=== PATIENT | male | born 1955 | race Asian ===

== ENCOUNTER 2021-01-15 16:27 | Inpatient (IN) | payer MEDICARE, OTHER ==
[~2021-01-15] VITALS: Ht 167.6 cm; Wt 63.5 kg
[2021-01-15 17:14] LABS: BASOPHILS % (AUTO) 0.1 % (0.0-2.0); EOSINOPHILS % (AUTO) 0 % (1.0-6.0); HEMATOCRIT 47.6 % (41-53); HEMOGLOBIN 15.3 g/dL (13.5-17.5); LYMPHOCYTES # (AUTO) 0.3 K/uL (1.0-4.8); LYMPHOCYTES % (AUTO) 3.5 % (22.0-44.0); MEAN CORPUSCULAR HEMOGLOBIN 28.8 pg (26.0-34.0); MEAN CORPUSCULAR HGB CONC 32.2 G/dL (31.0-37.0); MEAN CORPUSCULAR VOLUME 90 fL (80-100); MONOCYTES # (AUTO) 0.8 K/uL (0.1-1.0); NEUTROPHILS # (AUTO) 6.2 K/uL (1.8-7.7); NEUTROPHILS % (AUTO) 85.4 % (40.0-70.0); PLATELET COUNT (AUTO) 148 K/uL (150-450); RED BLOOD CELL COUNT(AUTO) 5.31 MIL/uL (4.50-5.90); RED CELL DISTRIBUTION WIDTH 13.1 % (11.5-14.5)
[2021-01-15 17:15] LABS: ABG A-A DIFF O2 218.4 mmHg (10-20.0); ABG BASE EXCESS -7.5 mmol/L (-2.0-3.0); ABG CARBOXYHEMOGLOBIN 0.5 % (0.0-1.5); ABG HCO3 19.9 mmol/L (22.0-26.0); ABG METHEMOGLOBIN 0.2 % (0.0-1.5); ABG OXYGEN CONTENT 19.1 mL/dL (15.0-23.0); ABG OXYGEN SATURATION 92.3 % (95.0-98.0); ABG OXYHEMOGLOBIN 91.7 % (94.0-100.0); ABG PCO2 26 mmHg (35-45); ABG PH 7.424 (7.35-7.450); ABG TOTAL HEMOGLOBIN 14.8 G/dL (12.0-18.0); PO2, ARTERIAL BG 70.5 mmHg (79.0-87.0); SOURCE, BLOOD GAS ARTERIAL
[2021-01-15] MEDS ORDERED: DEXAMETHASONE SOD PHOS 4 MG/ML VIAL IVP ONE (17:15)
[2021-01-15] MEDS ORDERED: ACETAMINOPHEN 1000 MG/ISO-OSM 100 ML IV ONE (17:15)
[2021-01-15 17:16] LABS: O2 DEVICE,BLOOD GAS CANNULA (ROOM AIR); SITE, BLOOD GAS LFT RADIAL
[2021-01-15 17:22] LABS: ANION GAP 15 mmol/L (8-16); CALCIUM, TOTAL 8.9 mg/dL (8.8-10.5); CARBON DIOXIDE 23 mmol/L (22-29); CHLORIDE 96 mmol/L (98-107); CREATININE 1.31 mg/dL (0.60-1.30); GLOMERULAR FILTR. RATE CALC 55 mL/min (>60); GLUCOSE,RANDOM 212 mg/dL (70-110); POTASSIUM 4.3 mmol/L (3.5-5.1); SODIUM SERUM 134 mmol/L (136-145); UREA NITROGEN, BLOOD 20 mg/dL (7-18)
[2021-01-15 17:29] LABS: D-DIMER 1.01 mg/L FEU (0.00-0.50); PROTHROMBIN TIME 10.7 SEC (9.4-11.6)
[2021-01-15] MEDS ORDERED: DOXYCYCLINE HYCLATE 100 MG in DEXTROSE 5%-WATER 100 ML IV ONE (17:30)
[2021-01-15] MEDS ORDERED: CefTRIAXone 1 GM/DEXTROSE 50 ML IV ONE (17:30)
[2021-01-15 17:45] LABS: LACTIC ACID 3.6 mmol/L (0.4-2.0)
[2021-01-15 17:46] LABS: B-TYPE NATRIURETIC PEPTIDE 18 pg/mL (0-100)
[2021-01-15 17:49] LABS: ALANINE AMINOTRANSFERASE 29 U/L (12-78); ALBUMIN 2.9 g/dL (3.4-5.0); ALKALINE PHOSPHATASE 82 U/L (46-116); ASPARTATE AMINOTRANSFERASE 50 U/L (15-37); BILIRUBIN,TOTAL 0.7 mg/dL (0.1-1.0); C-REACTIVE PROTEIN QUANT 20.29 mg/dL (0.00-0.30); CREATINE KINASE, TOTAL ONLY 79 U/L (39-308); FERRITIN 701 ng/mL (26-388); LACTATE DEHYDROGENASE 451 U/L (85-227); TOTAL PROTEIN, SERUM 8.6 g/dL (6.4-8.2)
[2021-01-15 18:12] LABS: INFLUENZA TYPE A NEGATIVE FOR TYPE A (NEGATIVE); INFLUENZA TYPE B NEGATIVE FOR TYPE B (NEGATIVE)
[2021-01-15] MEDS ORDERED: SODIUM CHLORIDE 0.9% 1,950 ML IV ONE (18:15)
[2021-01-15] MEDS ORDERED: ALBUTEROL SULFATE HFA 90 MCG/PUFF 8 GM INHALER IH PRN (19:45)
[2021-01-15] MEDS ORDERED: DEXTROSE 50%-WATER 25 GM/50 ML SYRINGE IVP PRN (19:45)
[2021-01-15] MEDS ORDERED: ONDANSETRON HCL 4 MG/2 ML VIAL IVP PRN (19:45)
[2021-01-15] MEDS ORDERED: REMDESIVIR 200 MG in SODIUM CHLORIDE 0.9% 250 ML IV ONE (21:00)
[2021-01-15] MEDS ORDERED: SODIUM CHLORIDE 0.9% 0 ML IV ONE (21:51)
[2021-01-15 22:18] VITALS: BP 138/86
[2021-01-15] MEDS: DOCUSATE SODIUM 100 MG CAPSULE PO SCH (22:49)
[2021-01-15] MEDS: SODIUM CHLORIDE 0.9% 1,000 ML IV SCH (22:49)
[2021-01-15] MEDS: HEPARIN SODIUM,PORCINE 5,000 UNITS/ML VIAL SQ SCH (22:50)
[2021-01-15 23:47] VITALS: BP 126/81
[2021-01-16 04:23] VITALS: BP 147/95
[2021-01-16 06:39] LABS: ALBUMIN 2.5 g/dL (3.4-5.0); BILIRUBIN,TOTAL 0.5 mg/dL (0.1-1.0); CALCIUM, TOTAL 8.9 mg/dL (8.8-10.5); CREATININE 1.21 mg/dL (0.60-1.30); TOTAL PROTEIN, SERUM 7.9 g/dL (6.4-8.2)
[2021-01-16] MEDS: BENZONATATE 100 MG CAPSULE PO PRN ×2 (06:43→15:06)
[2021-01-16 08:10] VITALS: BP 142/96
[2021-01-16] MEDS: MetFORMIN HCL 850 MG TABLET PO SCH ×2 (08:15→17:11)
[2021-01-16] MEDS: DOCUSATE SODIUM 100 MG CAPSULE PO SCH ×2 (08:15→21:00)
[2021-01-16] MEDS: FAMOTIDINE 20 MG TABLET PO SCH (08:15)
[2021-01-16] MEDS: HEPARIN SODIUM,PORCINE 5,000 UNITS/ML VIAL SQ SCH ×3 (08:16→23:40)
[2021-01-16] MEDS: DEXAMETHASONE SOD PHOS 4 MG/ML VIAL IVP SCH (08:16)
[2021-01-16] MEDS: SODIUM CHLORIDE 0.9% 1,000 ML IV SCH ×2 (08:21→16:52)
[2021-01-16] MEDS: ACETAMINOPHEN 325 MG TABLET PO PRN (09:23)
[2021-01-16 10:59] LABS: GLUCOMETER DEV NAME(LOC) 5N.3; GLUCOSE,POINT OF CARE 246 MG/DL (70-110)
[2021-01-16 10:59] LABS: GLUCOMETER DEV NAME(LOC) 5N.3; GLUCOSE,POINT OF CARE 346 MG/DL (70-110)
[2021-01-16] MEDS: GuaiFENesin/CODEINE [SUGAR FREE] 200-20MG/10 ML SYRUP UDCUP PO PRN ×2 (11:50→16:33)
[2021-01-16] MEDS: INSULIN LISPRO 100 UNITS/ML SQ PRN ×3 (11:50→21:22)
[2021-01-16 12:00] VITALS: BP 135/79
[2021-01-16] MEDS: CefTRIAXone 1 GM/DEXTROSE 50 ML IV SCH (15:04)
[2021-01-16] MEDS ORDERED: TOCILIZUMAB IV ONE (16:00)
[2021-01-16] MEDS ORDERED: SODIUM CHLORIDE 0.9% IV ONE (16:00)
[2021-01-16 16:30] VITALS: BP 158/88
[2021-01-16] MEDS: CHOLECALCIFEROL (VIT D3) 2,000 UNITS [50 MCG] TABLET PO SCH (16:50)
[2021-01-16 17:38] LABS: ABG A-A DIFF O2 614.9 mmHg (10-20.0); ABG CARBOXYHEMOGLOBIN 0.3 % (0.0-1.5); ABG METHEMOGLOBIN 0.3 % (0.0-1.5); ABG OXYGEN SATURATION 93.9 % (95.0-98.0); ABG OXYHEMOGLOBIN 93.3 % (94.0-100.0); ABG PCO2 29 mmHg (35-45); ABG PH 7.405 (7.35-7.450); O2 DEVICE,BLOOD GAS CANNULA (ROOM AIR); PO2, ARTERIAL BG 69.2 mmHg (79.0-87.0); SITE, BLOOD GAS LFT BRACHIAL; SOURCE, BLOOD GAS ARTERIAL; TEMPERATURE, FAHRENHEIT, BG 98.6 FAHREN (96.0-98.6)
[2021-01-16 20:00] VITALS: BP 179/118
[2021-01-16] MEDS: REMDESIVIR 100 MG in SODIUM CHLORIDE 0.9% 250 ML IV SCH (21:21)
[2021-01-16] MEDS ORDERED: DILTIAZEM HCL 5 MG/ML 5 ML VIAL IVP ONE (21:45)
[2021-01-16] MEDS ORDERED: MELATONIN 3 MG TABLET PO ONE (22:45)
[2021-01-17] VITALS: BP 135/86
[2021-01-17 00:05] LABS: GLUCOSE,POINT OF CARE 240 MG/DL (70-110)
[2021-01-17] MEDS: SODIUM CHLORIDE 0.9% 1,000 ML IV SCH ×3 (03:56→21:07)
[2021-01-17 04:00] VITALS: BP 145/80
[2021-01-17] MEDS: INSULIN LISPRO 100 UNITS/ML SQ PRN ×3 (05:05→21:08)
[2021-01-17 05:40] LABS: ALANINE AMINOTRANSFERASE 24 U/L (12-78); ALBUMIN 2.3 g/dL (3.4-5.0); ALKALINE PHOSPHATASE 99 U/L (46-116); ANION GAP 12 mmol/L (8-16); ASPARTATE AMINOTRANSFERASE 55 U/L (15-37); BILIRUBIN,TOTAL 0.4 mg/dL (0.1-1.0); CALCIUM, TOTAL 8.9 mg/dL (8.8-10.5); CARBON DIOXIDE 24 mmol/L (22-29); CHLORIDE 108 mmol/L (98-107); CREATININE 0.99 mg/dL (0.60-1.30); GLOMERULAR FILTR. RATE CALC > 60 mL/min (>60); GLUCOSE,RANDOM 213 mg/dL (70-110); POTASSIUM 4.9 mmol/L (3.5-5.1); SODIUM SERUM 144 mmol/L (136-145); TOTAL PROTEIN, SERUM 7.4 g/dL (6.4-8.2); UREA NITROGEN, BLOOD 23 mg/dL (7-18)
[2021-01-17 08:00] VITALS: BP 143/86
[2021-01-17] MEDS: CHOLECALCIFEROL (VIT D3) 2,000 UNITS [50 MCG] TABLET PO SCH (08:06)
[2021-01-17] MEDS: MetFORMIN HCL 850 MG TABLET PO SCH ×2 (08:06→16:32)
[2021-01-17] MEDS: HEPARIN SODIUM,PORCINE 5,000 UNITS/ML VIAL SQ SCH ×2 (08:06→16:32)
[2021-01-17] MEDS: DEXAMETHASONE SOD PHOS 4 MG/ML VIAL IVP SCH (08:06)
[2021-01-17] MEDS: DOCUSATE SODIUM 100 MG CAPSULE PO SCH ×2 (08:07→19:44)
[2021-01-17] MEDS: FAMOTIDINE 20 MG TABLET PO SCH (08:07)
[2021-01-17 12:00] VITALS: BP 115/70
[2021-01-17 12:00] LABS: GLUCOSE,POINT OF CARE 210 MG/DL (70-110)
[2021-01-17] MEDS: CefTRIAXone 1 GM/DEXTROSE 50 ML IV SCH (15:16)
[2021-01-17] MEDS: BENZONATATE 100 MG CAPSULE PO PRN (15:57)
[2021-01-17 16:00] VITALS: BP 127/76
[2021-01-17 17:24] LABS: GLUCOSE,POINT OF CARE 241 MG/DL (70-110)
[2021-01-17 17:25] LABS: GLUCOSE,POINT OF CARE 247 MG/DL (70-110)
[2021-01-17 18:37] LABS: C.DIFF GDH ANTIGEN, Stool Negative (Negative); C.DIFF TOXINS A&B, Stool Negative (Negative)
[2021-01-17] MEDS: REMDESIVIR 100 MG in SODIUM CHLORIDE 0.9% 250 ML IV SCH (19:43)
[2021-01-17 20:12] VITALS: BP 158/95
[2021-01-17 20:22] LABS: GLUCOMETER DEV NAME(LOC) 5N.3; GLUCOSE,POINT OF CARE 289 MG/DL (70-110)
[2021-01-17 20:22] LABS: GLUCOMETER DEV NAME(LOC) 5N.3; GLUCOSE,POINT OF CARE 223 MG/DL (70-110)
[2021-01-17] MEDS: GuaiFENesin/CODEINE [SUGAR FREE] 200-20MG/10 ML SYRUP UDCUP PO PRN (22:27)
[2021-01-17] MEDS: ACETAMINOPHEN 325 MG TABLET PO PRN (22:27)
[2021-01-17 22:29] LABS: GLUCOSE,POINT OF CARE 237 MG/DL (70-110)
[2021-01-18] VITALS: BP 155/97
[2021-01-18] MEDS: HEPARIN SODIUM,PORCINE 5,000 UNITS/ML VIAL SQ SCH ×4 (00:15→23:17)
[2021-01-18 04:00] VITALS: BP 162/96
[2021-01-18] MEDS: SODIUM CHLORIDE 0.9% 1,000 ML IV SCH ×3 (05:21→20:36)
[2021-01-18 05:42] LABS: ALANINE AMINOTRANSFERASE 24 U/L (12-78); ALBUMIN 2.4 g/dL (3.4-5.0); ALKALINE PHOSPHATASE 139 U/L (46-116); ANION GAP 9 mmol/L (8-16); ASPARTATE AMINOTRANSFERASE 50 U/L (15-37); BILIRUBIN,TOTAL 0.4 mg/dL (0.1-1.0); C-REACTIVE PROTEIN QUANT 8.32 mg/dL (0.00-0.30); CALCIUM, TOTAL 8.7 mg/dL (8.8-10.5); CARBON DIOXIDE 24 mmol/L (22-29); CHLORIDE 108 mmol/L (98-107); CREATININE 0.99 mg/dL (0.60-1.30); FERRITIN 888 ng/mL (26-388); GLOMERULAR FILTR. RATE CALC > 60 mL/min (>60); GLUCOSE,RANDOM 229 mg/dL (70-110); LACTATE DEHYDROGENASE 831 U/L (85-227); POTASSIUM 4.5 mmol/L (3.5-5.1); SODIUM SERUM 141 mmol/L (136-145); TOTAL PROTEIN, SERUM 6.9 g/dL (6.4-8.2); UREA NITROGEN, BLOOD 24 mg/dL (7-18)
[2021-01-18] MEDS: INSULIN LISPRO 100 UNITS/ML SQ PRN ×4 (06:44→20:37)
[2021-01-18 06:56] LABS: GLUCOSE,POINT OF CARE 233 MG/DL (70-110)
[2021-01-18] MEDS: GuaiFENesin/CODEINE [SUGAR FREE] 200-20MG/10 ML SYRUP UDCUP PO PRN ×2 (06:56→14:27)
[2021-01-18] MEDS: MetFORMIN HCL 850 MG TABLET PO SCH ×2 (07:51→17:30)
[2021-01-18] MEDS: CHOLECALCIFEROL (VIT D3) 2,000 UNITS [50 MCG] TABLET PO SCH (07:51)
[2021-01-18] MEDS: FAMOTIDINE 20 MG TABLET PO SCH (07:52)
[2021-01-18] MEDS: DEXAMETHASONE SOD PHOS 4 MG/ML VIAL IVP SCH (07:52)
[2021-01-18 08:00] VITALS: BP 156/106
[2021-01-18] MEDS: CloNIDine HCL 0.1 MG TABLET PO PRN ×2 (09:00→18:13)
[2021-01-18] MEDS: DOCUSATE SODIUM 100 MG CAPSULE PO SCH ×2 (09:00→19:47)
[2021-01-18 12:00] VITALS: BP 149/91
[2021-01-18] MEDS: BENZONATATE 100 MG CAPSULE PO PRN (14:27)
[2021-01-18] MEDS: CefTRIAXone 1 GM/DEXTROSE 50 ML IV SCH (14:28)
[2021-01-18 16:00] VITALS: BP 160/93
[2021-01-18 20:00] VITALS: BP 151/98
[2021-01-18 20:09] LABS: GLUCOSE,POINT OF CARE 221 MG/DL (70-110)
[2021-01-18 20:09] LABS: GLUCOSE,POINT OF CARE 235 MG/DL (70-110)
[2021-01-18] MEDS: REMDESIVIR 100 MG in SODIUM CHLORIDE 0.9% 250 ML IV SCH (20:36)
[2021-01-19] VITALS: BP 161/95
[2021-01-19] MEDS: CloNIDine HCL 0.1 MG TABLET PO PRN (03:13)
[2021-01-19 04:00] VITALS: BP 174/117
[2021-01-19 05:16] LABS: ALANINE AMINOTRANSFERASE 26 U/L (12-78); ALBUMIN 2.7 g/dL (3.4-5.0); ALKALINE PHOSPHATASE 179 U/L (46-116); ANION GAP 20 mmol/L (8-16); ASPARTATE AMINOTRANSFERASE 61 U/L (15-37); BILIRUBIN,TOTAL 0.6 mg/dL (0.1-1.0); C-REACTIVE PROTEIN QUANT 4.98 mg/dL (0.00-0.30); CALCIUM, TOTAL 8.5 mg/dL (8.8-10.5); CARBON DIOXIDE 22 mmol/L (22-29); CHLORIDE 103 mmol/L (98-107); CREATININE 0.92 mg/dL (0.60-1.30); FERRITIN 689 ng/mL (26-388); GLOMERULAR FILTR. RATE CALC > 60 mL/min (>60); GLUCOSE,RANDOM 204 mg/dL (70-110); LACTATE DEHYDROGENASE 911 U/L (85-227); POTASSIUM 3.9 mmol/L (3.5-5.1); SODIUM SERUM 145 mmol/L (136-145); TOTAL PROTEIN, SERUM 6.7 g/dL (6.4-8.2); UREA NITROGEN, BLOOD 20 mg/dL (7-18)
[2021-01-19] MEDS ORDERED: HydrALAZINE HCL 20 MG/ML VIAL IVP ONE (05:30)
[2021-01-19 06:40] LABS: ABG A-A DIFF O2 587.8 mmHg (10-20.0); ABG BASE EXCESS -11.1 mmol/L (-2.0-3.0); ABG CARBOXYHEMOGLOBIN 0.6 % (0.0-1.5); ABG HCO3 14.9 mmol/L (22.0-26.0); ABG OXYGEN CONTENT 19.3 mL/dL (15.0-23.0); ABG OXYHEMOGLOBIN 82.6 % (94.0-100.0); ABG PCO2 63 mmHg (35-45); ABG TOTAL HEMOGLOBIN 16.6 G/dL (12.0-18.0); PO2, ARTERIAL BG 63.5 mmHg (79.0-87.0); SOURCE, BLOOD GAS ARTERIAL; TEMPERATURE, FAHRENHEIT, BG 97.9 FAHREN (96.0-98.6)
[2021-01-19 06:41] LABS: ABG OXYGEN SATURATION 83.1 % (95.0-98.0); ABG PH 7.092 (7.35-7.450); O2 DEVICE,BLOOD GAS VENTILATOR (ROOM AIR); SITE, BLOOD GAS LFT RADIAL; VT, ABG 430 ml
[2021-01-19 06:42] LABS: PEEP,BG 5 cm H2O
[2021-01-19 06:53] LABS: ANION GAP 21 mmol/L (8-16); CALCIUM, TOTAL 8.5 mg/dL (8.8-10.5); CARBON DIOXIDE 20 mmol/L (22-29); CHLORIDE 102 mmol/L (98-107); GLOMERULAR FILTR. RATE CALC > 60 mL/min (>60); GLUCOSE,RANDOM 342 mg/dL (70-110); POTASSIUM 3.5 mmol/L (3.5-5.1); SODIUM SERUM 143 mmol/L (136-145); UREA NITROGEN, BLOOD 19 mg/dL (7-18)
[2021-01-19 06:59] LABS: ALANINE AMINOTRANSFERASE 30 U/L (12-78); ALBUMIN 2.8 g/dL (3.4-5.0); ALKALINE PHOSPHATASE 203 U/L (46-116); ASPARTATE AMINOTRANSFERASE 70 U/L (15-37); BILIRUBIN,TOTAL 0.5 mg/dL (0.1-1.0)
[2021-01-19] MEDS: PROPOFOL 1000 MG/ISO-OSM 100 ML IV PRN ×2 (06:59→17:50)
[2021-01-19] MEDS ORDERED: DIGOXIN 250 MCG/ML 2 ML AMP IVP ONE ×2 (07:00→12:30)
[2021-01-19] MEDS ORDERED: PROPOFOL 1000 MG/ISO-OSM 100 ML IV PRN (07:00)
[2021-01-19] MEDS: FentaNYL CIT 1000MCG/D5%-WATER 100 ML IV PRN ×2 (07:36→12:57)
[2021-01-19 08:00] VITALS: BP 161/93
[2021-01-19 09:16] LABS: ABG A-A DIFF O2 330.1 mmHg (10-20.0); ABG CARBOXYHEMOGLOBIN 0.7 % (0.0-1.5); ABG HCO3 13.1 mmol/L (22.0-26.0); ABG METHEMOGLOBIN 0.3 % (0.0-1.5); ABG OXYGEN CONTENT 23.7 mL/dL (15.0-23.0); ABG OXYGEN SATURATION 99.1 % (95.0-98.0); ABG OXYHEMOGLOBIN 98.1 % (94.0-100.0); ABG TOTAL HEMOGLOBIN 16.7 G/dL (12.0-18.0); PO2, ARTERIAL BG 292.2 mmHg (79.0-87.0); SOURCE, BLOOD GAS ARTERIAL
[2021-01-19 09:17] LABS: ABG PCO2 94 mmHg (35-45); ABG PH 6.928 (7.35-7.450); O2 DEVICE,BLOOD GAS VENTILATOR (ROOM AIR); PEEP,BG 10 cm H2O; SITE, BLOOD GAS LFT RADIAL; VT, ABG 430 ml
[2021-01-19] MEDS ORDERED: AMIODARONE HCL 150 MG in DEXTROSE 5%-WATER 97 ML IV ONE (09:30)
[2021-01-19] MEDS ORDERED: INSULIN GLARGINE,HUM.REC.ANLOG 100 UNITS/ML SQ SCH (09:30)
[2021-01-19] MEDS ORDERED: AMIODARONE HCL 360 MG in DEXTROSE 5%-WATER 242.8 ML IV ONE (09:30)
[2021-01-19 09:38] LABS: BASOPHILS % (AUTO) 0.2 % (0.0-2.0); EOSINOPHILS % (AUTO) 0 % (1.0-6.0); HEMATOCRIT 48.5 % (41-53); HEMOGLOBIN 15.6 g/dL (13.5-17.5); LYMPHOCYTES # (AUTO) 0.3 K/uL (1.0-4.8); LYMPHOCYTES % (AUTO) 1.9 % (22.0-44.0); MEAN CORPUSCULAR HEMOGLOBIN 28.7 pg (26.0-34.0); MEAN CORPUSCULAR HGB CONC 32.1 G/dL (31.0-37.0); MEAN CORPUSCULAR VOLUME 89 fL (80-100); MONOCYTES # (AUTO) 1.3 K/uL (0.1-1.0); MONOCYTES % (AUTO) 7.5 % (2.0-9.0); NEUTROPHILS # (AUTO) 16.1 K/uL (1.8-7.7); PLATELET COUNT (AUTO) 243 K/uL (150-450); RED BLOOD CELL COUNT(AUTO) 5.43 MIL/uL (4.50-5.90); RED CELL DISTRIBUTION WIDTH 13.6 % (11.5-14.5)
[2021-01-19 09:39] LABS: NEUTROPHILS % (AUTO) 90.4 % (40.0-70.0)
[2021-01-19] MEDS ORDERED: SODIUM CHLORIDE 0.9% 500 ML IV ONE ×2 (09:50→11:13)
[2021-01-19] MEDS: DOCUSATE SODIUM 100 MG CAPSULE PO SCH ×2 (09:51→21:21)
[2021-01-19] MEDS: CHOLECALCIFEROL (VIT D3) 2,000 UNITS [50 MCG] TABLET PO SCH (09:51)
[2021-01-19] MEDS: FAMOTIDINE 20 MG TABLET PO SCH (09:52)
[2021-01-19] MEDS: DEXAMETHASONE SOD PHOS 4 MG/ML VIAL IVP SCH (09:52)
[2021-01-19] MEDS: MetFORMIN HCL 850 MG TABLET PO SCH ×2 (09:52→16:49)
[2021-01-19] MEDS: HEPARIN SODIUM,PORCINE 5,000 UNITS/ML VIAL SQ SCH ×2 (09:52→16:13)
[2021-01-19] MEDS: SODIUM CHLORIDE 0.9% 1,000 ML IV SCH ×2 (09:53→16:13)
[2021-01-19 12:00] VITALS: BP_SYST 112; BP_SYST 89; BP_DIAS 41; BP_DIAS 68
[2021-01-19 13:28] LABS: ABG A-A DIFF O2 500.3 mmHg (10-20.0); ABG BASE EXCESS -13.3 mmol/L (-2.0-3.0); ABG CARBOXYHEMOGLOBIN 0.9 % (0.0-1.5); ABG HCO3 13.8 mmol/L (22.0-26.0); ABG OXYGEN CONTENT 21.4 mL/dL (15.0-23.0); ABG OXYGEN SATURATION 98.2 % (95.0-98.0); ABG OXYHEMOGLOBIN 97.3 % (94.0-100.0); ABG PCO2 65 mmHg (35-45); ABG PH 7.041 (7.35-7.450); ABG TOTAL HEMOGLOBIN 15.5 G/dL (12.0-18.0); PO2, ARTERIAL BG 149.6 mmHg (79.0-87.0); SITE, BLOOD GAS ARTERIAL LINE; SOURCE, BLOOD GAS ARTERIAL; TEMPERATURE, FAHRENHEIT, BG 97.1 FAHREN (96.0-98.6)
[2021-01-19 13:29] LABS: O2 DEVICE,BLOOD GAS VENTILATOR (ROOM AIR); PEEP,BG 10 cm H2O; VT, ABG 430 ml
[2021-01-19] MEDS ORDERED: CISATRACURIUM BESYLATE 100 MG in DEXTROSE 5%-WATER 240 ML IV PRN (13:30)
[2021-01-19] MEDS ORDERED: CISATRACURIUM BESYLATE 2 MG/ML 10 ML VIAL IVP ONE (13:30)
[2021-01-19 14:35] LABS: GLUCOSE,POINT OF CARE 190 MG/DL (70-110)
[2021-01-19 14:35] LABS: GLUCOSE,POINT OF CARE 182 MG/DL (70-110)
[2021-01-19] MEDS: CefTRIAXone 1 GM/DEXTROSE 50 ML IV SCH (15:11)
[2021-01-19] MEDS ORDERED: AMIODARONE HCL 540 MG in DEXTROSE 5%-WATER 239.2 ML IV ONE (15:30)
[2021-01-19 16:00] VITALS: BP 112/41
[2021-01-19] MEDS: INSULIN LISPRO 100 UNITS/ML SQ PRN ×3 (16:01→22:08)
[2021-01-19] MEDS ORDERED: LIDOCAINE/PF 2% 5 ML VIAL ONE (17:01)
[2021-01-19] MEDS ORDERED: ETOMIDATE 2 MG/ML 10 ML VIAL ONE (17:01)
[2021-01-19] MEDS: SODIUM CHLORIDE 0.9% IV PRN (17:49)
[2021-01-19] MEDS: CISATRACURIUM BESYLATE IV PRN (17:49)
[2021-01-19] MEDS: FentaNYL CIT 1000MCG/0.9% NACL 100 ML IV PRN (17:49)
[2021-01-19 20:07] VITALS: BP 95/37
[2021-01-19] MEDS: RINGERS SOLUTION,LACTATED 1,000 ML IV SCH (21:21)
[2021-01-19] MEDS: REMDESIVIR 100 MG in SODIUM CHLORIDE 0.9% 250 ML IV SCH (21:23)
[2021-01-19] MEDS: NOREPINEPHRINE 4 MG/D5%-WATER 250 ML IV PRN (21:24)
[2021-01-19] MEDS: INSULIN GLARGINE,HUM.REC.ANLOG 100 UNITS/ML SQ SCH (22:06)
[2021-01-20 00:06] VITALS: BP 106/39
[2021-01-20] MEDS: HEPARIN SODIUM,PORCINE 5,000 UNITS/ML VIAL SQ SCH (00:17)
[2021-01-20 00:33] LABS: GLUCOSE,POINT OF CARE 560 MG/DL (70-110)
[2021-01-20 00:33] LABS: GLUCOSE,POINT OF CARE 355 MG/DL (70-110)
[2021-01-20 00:33] LABS: GLUCOSE,POINT OF CARE 540 MG/DL (70-110)
[2021-01-20] MEDS: FentaNYL CIT 1000MCG/0.9% NACL 100 ML IV PRN ×2 (02:42→14:04)
[2021-01-20 04:06] VITALS: BP 102/44
[2021-01-20] MEDS: ACETAMINOPHEN 325 MG TABLET PO PRN ×3 (04:17→21:13)
[2021-01-20 04:48] LABS: HEMATOCRIT 49.3 % (41-53); HEMOGLOBIN 15.4 g/dL (13.5-17.5); MEAN CORPUSCULAR HEMOGLOBIN 28.6 pg (26.0-34.0); MEAN CORPUSCULAR HGB CONC 31.2 G/dL (31.0-37.0); MEAN CORPUSCULAR VOLUME 92 fL (80-100); PLATELET COUNT (AUTO) 208 K/uL (150-450); RED BLOOD CELL COUNT(AUTO) 5.39 MIL/uL (4.50-5.90); RED CELL DISTRIBUTION WIDTH 14.4 % (11.5-14.5)
[2021-01-20 05:34] LABS: ALBUMIN 2.5 g/dL (3.4-5.0); BILIRUBIN,TOTAL 0.2 mg/dL (0.1-1.0); CALCIUM, TOTAL 7.4 mg/dL (8.8-10.5); CREATININE 3.1 mg/dL (0.60-1.30); POTASSIUM 4.7 mmol/L (3.5-5.1); TOTAL PROTEIN, SERUM 6.2 g/dL (6.4-8.2)
[2021-01-20 06:01] LABS: BAND NEUTROPHILS % (MANUAL) 8 % (0-5); LYMPHOCYTES % (MANUAL) 1 % (22-44); MONOCYTES % (MANUAL) 5 % (2-9); SEGMENTED NEUTROPHILS % 86 % (40-70)
[2021-01-20 06:50] LABS: GLUCOSE,POINT OF CARE 105 MG/DL (70-110)
[2021-01-20 08:00] VITALS: BP 119/48
[2021-01-20] MEDS ORDERED: HEPARIN SODIUM,PORCINE 5,000 UNITS/ML VIAL IVP PRN ×2 (08:15)
[2021-01-20] MEDS ORDERED: HEPARIN SODIUM 25000 UNITS/D5W 250 ML IV PRN (08:15)
[2021-01-20 08:57] LABS: EOSINOPHILS % (AUTO) 0 % (1.0-6.0); HEMATOCRIT 44.3 % (41-53); HEMOGLOBIN 13.7 g/dL (13.5-17.5); LYMPHOCYTES # (AUTO) 0.2 K/uL (1.0-4.8); LYMPHOCYTES % (AUTO) 1.3 % (22.0-44.0); MEAN CORPUSCULAR HEMOGLOBIN 28.1 pg (26.0-34.0); MEAN CORPUSCULAR HGB CONC 30.9 G/dL (31.0-37.0); MEAN CORPUSCULAR VOLUME 91 fL (80-100); MONOCYTES # (AUTO) 0.4 K/uL (0.1-1.0); MONOCYTES % (AUTO) 2.9 % (2.0-9.0); NEUTROPHILS # (AUTO) 14.5 K/uL (1.8-7.7); PLATELET COUNT (AUTO) 167 K/uL (150-450); RED BLOOD CELL COUNT(AUTO) 4.88 MIL/uL (4.50-5.90); RED CELL DISTRIBUTION WIDTH 14.5 % (11.5-14.5)
[2021-01-20] MEDS: DOCUSATE SODIUM 100 MG CAPSULE PO SCH ×2 (09:00→21:12)
[2021-01-20 09:06] LABS: NEUTROPHILS % (AUTO) 94.8 % (40.0-70.0)
[2021-01-20] MEDS: FAMOTIDINE 20 MG TABLET PO SCH (09:12)
[2021-01-20] MEDS: CHOLECALCIFEROL (VIT D3) 2,000 UNITS [50 MCG] TABLET PO SCH (09:12)
[2021-01-20] MEDS: DEXAMETHASONE SOD PHOS 4 MG/ML VIAL IVP SCH (09:17)
[2021-01-20] MEDS: AMIODARONE HCL 750 MG in DEXTROSE 5%-WATER 485 ML IV SCH (09:18)
[2021-01-20 09:20] LABS: INR 1.1 (0.9-1.1); PROTHROMBIN TIME 11.6 SEC (9.4-11.6)
[2021-01-20] MEDS: PROPOFOL 1000 MG/ISO-OSM 100 ML IV PRN ×2 (09:21→20:36)
[2021-01-20] MEDS: NOREPINEPHRINE 4 MG/D5%-WATER 250 ML IV PRN (09:21)
[2021-01-20] MEDS: INSULIN GLARGINE,HUM.REC.ANLOG 100 UNITS/ML SQ SCH ×2 (09:23→21:28)
[2021-01-20] MEDS: RINGERS SOLUTION,LACTATED 1,000 ML IV SCH (10:35)
[2021-01-20 11:11] LABS: ABG A-A DIFF O2 326.7 mmHg (10-20.0); ABG BASE EXCESS -10.7 mmol/L (-2.0-3.0); ABG CARBOXYHEMOGLOBIN 0.7 % (0.0-1.5); ABG HCO3 15.9 mmol/L (22.0-26.0); ABG METHEMOGLOBIN 0.2 % (0.0-1.5); ABG OXYGEN CONTENT 21.8 mL/dL (15.0-23.0); ABG OXYGEN SATURATION 97.8 % (95.0-98.0); ABG OXYHEMOGLOBIN 96.9 % (94.0-100.0); ABG PCO2 56 mmHg (35-45); ABG PH 7.137 (7.35-7.450); ABG TOTAL HEMOGLOBIN 15.9 G/dL (12.0-18.0); O2 DEVICE,BLOOD GAS VENTILATOR (ROOM AIR); PO2, ARTERIAL BG 111.2 mmHg (79.0-87.0); SITE, BLOOD GAS ARTERIAL LINE; SOURCE, BLOOD GAS ARTERIAL; TEMPERATURE, FAHRENHEIT, BG 99.8 FAHREN (96.0-98.6); VT, ABG 430 ml
[2021-01-20 11:12] LABS: PEEP,BG 10 cm H2O; SPONTANEOUS VT, BG 423 ml
[2021-01-20] MEDS ORDERED: SODIUM BICARBONATE [ADULT] 8.4% 50 MEQ/50 ML SYRINGE IVP ONE (11:30)
[2021-01-20] MEDS ORDERED: HEPARIN SODIUM,PORCINE 100 UNITS/ML 5 ML VIAL IVP ONE (11:30)
[2021-01-20 11:37] LABS: APPEARANCE,URINE CLOUDY (CLEAR); GLUCOSE, URINE (UA) 100 mg/dL (NEGATIVE); KETONES,URINE TRACE mg/dL (NEGATIVE); LEUKOCYTE ESTERASE ,URINE NEGATIVE (NEGATIVE); NITRATE,URINE NEGATIVE (NEGATIVE); OCCULT BLOOD,URINE LARGE (NEGATIVE); PROTEIN,URINE SEE CONFIRM (NEGATIVE); UROBILINOGEN,URINE 0.2 mg/dL (<=1.0)
[2021-01-20 11:57] LABS: BILIRUBIN,URINE PRELIM. POSITIVE (NEGATIVE)
[2021-01-20 12:00] VITALS: BP 164/54
[2021-01-20] MEDS ORDERED: HEPARIN SODIUM,PORCINE 1,000 UNITS/ML VIAL IVP ONE (12:00)
[2021-01-20 12:18] LABS: SULFOSALICYLIC ACID,URINE 3+ (Negative); WBC,URINE None Seen /HPF (0-5)
[2021-01-20 12:19] LABS: BACTERIA,URINE Few /HPF (None Seen); SQUAMOUS EPITHELIAL CELL,UR Few /LPF (None Seen)
[2021-01-20] MEDS: SODIUM CHLORIDE 0.9% IV PRN (12:19)
[2021-01-20] MEDS: CISATRACURIUM BESYLATE IV PRN (12:19)
[2021-01-20 12:45] LABS: GLUCOSE,POINT OF CARE 131 MG/DL (70-110)
[2021-01-20] MEDS ORDERED: CEFTRIAXONE SODIUM IV SCH (15:00)
[2021-01-20] MEDS ORDERED: SODIUM CHLORIDE 0.9% IV SCH (15:00)
[2021-01-20 15:27] LABS: APPEARANCE,URINE CLOUDY (CLEAR); BILIRUBIN,URINE NEGATIVE (NEGATIVE); GLUCOSE, URINE (UA) 100 mg/dL (NEGATIVE); KETONES,URINE TRACE mg/dL (NEGATIVE); LEUKOCYTE ESTERASE ,URINE TRACE (NEGATIVE); NITRATE,URINE NEGATIVE (NEGATIVE); OCCULT BLOOD,URINE LARGE (NEGATIVE); PROTEIN,URINE SEE CONFIRM (NEGATIVE); UROBILINOGEN,URINE 0.2 mg/dL (<=1.0)
[2021-01-20 15:32] LABS: CREATININE,URINE RANDOM 143.6 mg/dL (30.0-125.0); PROTEIN,URINE RANDOM 259 mg/dL (0-11.9); SODIUM,URINE RANDOM 39 mmol/l (20-110); UREA NITROGEN,URINE RANDOM 192 mg/dL (350-1000)
[2021-01-20 16:00] VITALS: BP 128/48
[2021-01-20 16:18] LABS: BACTERIA,URINE Moderate /HPF (None Seen); RBC,URINE 51-100 /HPF (0-2); SQUAMOUS EPITHELIAL CELL,UR Rare /LPF (None Seen); YEAST,URINE Rare /HPF (None Seen)
[2021-01-20 16:19] LABS: SULFOSALICYLIC ACID,URINE 1+ (Negative)
[2021-01-20 17:58] LABS: INR 1.2 (0.9-1.1); PROTHROMBIN TIME 12.4 SEC (9.4-11.6)
[2021-01-20] MEDS: INSULIN LISPRO 100 UNITS/ML SQ PRN (19:06)
[2021-01-20] MEDS ORDERED: SODIUM CHLORIDE 0.9% 250 ML IV ONE (19:18)
[2021-01-20 20:00] VITALS: BP 130/52
[2021-01-20 21:15] LABS: GLUCOSE,POINT OF CARE 209 MG/DL (70-110)
[2021-01-21] VITALS: BP 121/54
[2021-01-21 01:26] LABS: GLUCOSE,POINT OF CARE 217 MG/DL (70-110)
[2021-01-21] MEDS: INSULIN LISPRO 100 UNITS/ML SQ PRN ×4 (01:53→18:22)
[2021-01-21] MEDS: ACETAMINOPHEN 325 MG TABLET PO PRN (02:13)
[2021-01-21 04:00] VITALS: BP 97/41
[2021-01-21 04:51] LABS: GLUCOSE,POINT OF CARE 217 MG/DL (70-110)
[2021-01-21 05:10] LABS: BASOPHILS % (AUTO) 0.1 % (0.0-2.0); EOSINOPHILS % (AUTO) 0 % (1.0-6.0); HEMATOCRIT 48.7 % (41-53); HEMOGLOBIN 15.2 g/dL (13.5-17.5); LYMPHOCYTES # (AUTO) 0.2 K/uL (1.0-4.8); LYMPHOCYTES % (AUTO) 1.5 % (22.0-44.0); MEAN CORPUSCULAR HEMOGLOBIN 28.4 pg (26.0-34.0); MEAN CORPUSCULAR HGB CONC 31.3 G/dL (31.0-37.0); MEAN CORPUSCULAR VOLUME 91 fL (80-100); MONOCYTES # (AUTO) 0.6 K/uL (0.1-1.0); MONOCYTES % (AUTO) 4.5 % (2.0-9.0); NEUTROPHILS # (AUTO) 13.2 K/uL (1.8-7.7); RED BLOOD CELL COUNT(AUTO) 5.36 MIL/uL (4.50-5.90); RED CELL DISTRIBUTION WIDTH 14.4 % (11.5-14.5)
[2021-01-21 05:43] LABS: NEUTROPHILS % (AUTO) 93.9 % (40.0-70.0)
[2021-01-21 08:00] VITALS: BP 101/51
[2021-01-21] MEDS ORDERED: SODIUM CHLORIDE 0.9% 2,000 ML ONE (08:19)
[2021-01-21 08:33] LABS: CALCIUM, TOTAL 6.9 mg/dL (8.8-10.5); CREATININE 5.04 mg/dL (0.60-1.30); POTASSIUM 4.8 mmol/L (3.5-5.1)
[2021-01-21 08:40] LABS: PLATELET COUNT (AUTO) 91 K/uL (150-450)
[2021-01-21] MEDS: DOCUSATE SODIUM 100 MG CAPSULE PO SCH ×2 (08:45→20:12)
[2021-01-21] MEDS: DEXAMETHASONE SOD PHOS 4 MG/ML VIAL IVP SCH (08:45)
[2021-01-21] MEDS: FAMOTIDINE 20 MG TABLET PO SCH (08:46)
[2021-01-21] MEDS: PROPOFOL 1000 MG/ISO-OSM 100 ML IV PRN ×3 (08:46→23:26)
[2021-01-21] MEDS: CHOLECALCIFEROL (VIT D3) 2,000 UNITS [50 MCG] TABLET PO SCH (08:46)
[2021-01-21] MEDS: AMIODARONE HCL 750 MG in DEXTROSE 5%-WATER 485 ML IV SCH (09:07)
[2021-01-21] MEDS: INSULIN GLARGINE,HUM.REC.ANLOG 100 UNITS/ML SQ SCH ×2 (09:08→20:14)
[2021-01-21] MEDS ORDERED: *CLINICAL-RX DOSING [ENTER DRUG IN COMMENTS] CLINICAL ONE (10:00)
[2021-01-21] MEDS ORDERED: *CLINICAL-CEFEPIME DOSING CLINICAL ONE (10:00)
[2021-01-21 10:34] LABS: ABG A-A DIFF O2 430.2 mmHg (10-20.0); ABG BASE EXCESS -5.8 mmol/L (-2.0-3.0); ABG CARBOXYHEMOGLOBIN 0.4 % (0.0-1.5); ABG HCO3 18.9 mmol/L (22.0-26.0); ABG METHEMOGLOBIN 0.4 % (0.0-1.5); ABG OXYGEN SATURATION 98.5 % (95.0-98.0); ABG OXYHEMOGLOBIN 97.7 % (94.0-100.0); ABG PCO2 61 mmHg (35-45); ABG TOTAL HEMOGLOBIN 17.3 G/dL (12.0-18.0); PO2, ARTERIAL BG 148.6 mmHg (79.0-87.0); SOURCE, BLOOD GAS ARTERIAL; TEMPERATURE, FAHRENHEIT, BG 99.2 FAHREN (96.0-98.6)
[2021-01-21 10:35] LABS: ABG PH 7.186 (7.35-7.450); O2 DEVICE,BLOOD GAS VENTILATOR (ROOM AIR); PEEP,BG 10 cm H2O; SITE, BLOOD GAS ALINE; VT, ABG 430 ml
[2021-01-21] MEDS ORDERED: SODIUM BICARBONATE [ADULT] 8.4% 50 MEQ/50 ML SYRINGE IVP ONE (10:45)
[2021-01-21] MEDS: FentaNYL CIT 1000MCG/0.9% NACL 100 ML IV PRN ×2 (11:25→21:17)
[2021-01-21 12:00] VITALS: BP 106/51
[2021-01-21] MEDS ORDERED: HEPARIN SODIUM,PORCINE 1,000 UNITS/ML VIAL IVP ONE (12:00)
[2021-01-21] MEDS: CEFEPIME HCL 1 GM in DEXTROSE 5%-WATER 50 ML IV SCH (13:34)
[2021-01-21 14:25] LABS: GLUCOSE,POINT OF CARE 146 MG/DL (70-110)
[2021-01-21 14:25] LABS: GLUCOSE,POINT OF CARE 154 MG/DL (70-110)
[2021-01-21 16:00] VITALS: BP 109/54
[2021-01-21] MEDS ORDERED: DAPTOMYCIN 350 MG in SODIUM CHLORIDE 0.9% 50 ML IV SCH (16:00)
[2021-01-21 19:56] LABS: GLUCOSE,POINT OF CARE 218 MG/DL (70-110)
[2021-01-21 20:00] VITALS: BP 140/61
[2021-01-22] VITALS: BP 162/68
[2021-01-22] MEDS: INSULIN LISPRO 100 UNITS/ML SQ PRN ×4 (00:24→17:35)
[2021-01-22] MEDS: SODIUM CHLORIDE 0.9% IV PRN ×2 (01:32→22:50)
[2021-01-22] MEDS: CISATRACURIUM BESYLATE IV PRN ×2 (01:32→22:50)
[2021-01-22 02:15] LABS: GLUCOSE,POINT OF CARE 216 MG/DL (70-110)
[2021-01-22] MEDS ORDERED: SODIUM CHLORIDE 0.9% 500 ML IV ONE ×2 (03:46→22:16)
[2021-01-22 04:00] VITALS: BP 154/61
[2021-01-22] MEDS: PROPOFOL 1000 MG/ISO-OSM 100 ML IV PRN ×4 (04:16→20:36)
[2021-01-22 05:23] LABS: BASOPHILS % (AUTO) 0.3 % (0.0-2.0); EOSINOPHILS % (AUTO) 0 % (1.0-6.0); HEMATOCRIT 48.2 % (41-53); HEMOGLOBIN 15.4 g/dL (13.5-17.5); LYMPHOCYTES # (AUTO) 0.2 K/uL (1.0-4.8); LYMPHOCYTES % (AUTO) 1.4 % (22.0-44.0); MEAN CORPUSCULAR HEMOGLOBIN 28.7 pg (26.0-34.0); MEAN CORPUSCULAR VOLUME 90 fL (80-100); MONOCYTES # (AUTO) 1.2 K/uL (0.1-1.0); MONOCYTES % (AUTO) 6.7 % (2.0-9.0); NEUTROPHILS # (AUTO) 15.9 K/uL (1.8-7.7); PLATELET COUNT (AUTO) 101 K/uL (150-450); RED BLOOD CELL COUNT(AUTO) 5.38 MIL/uL (4.50-5.90); RED CELL DISTRIBUTION WIDTH 14.5 % (11.5-14.5)
[2021-01-22] MEDS: FentaNYL CIT 1000MCG/0.9% NACL 100 ML IV PRN ×3 (05:45→22:50)
[2021-01-22 06:07] LABS: CALCIUM, TOTAL 7.6 mg/dL (8.8-10.5); CREATININE 4.28 mg/dL (0.60-1.30); MAGNESIUM 2.4 mg/dL (1.80-2.40); PHOSPHORUS 7.5 mg/dL (2.5-4.9); POTASSIUM 4.7 mmol/L (3.5-5.1)
[2021-01-22 06:13] LABS: NEUTROPHILS % (AUTO) 91.6 % (40.0-70.0)
[2021-01-22 06:29] LABS: GLUCOSE,POINT OF CARE 160 MG/DL (70-110)
[2021-01-22 08:00] VITALS: BP 130/54
[2021-01-22] MEDS: DEXAMETHASONE SOD PHOS 4 MG/ML VIAL IVP SCH (08:38)
[2021-01-22] MEDS: CHOLECALCIFEROL (VIT D3) 2,000 UNITS [50 MCG] TABLET PO SCH (08:38)
[2021-01-22] MEDS: VITAMIN B COMP/VIT C/FOLIC ACID CAPSULE PO SCH (08:38)
[2021-01-22] MEDS: FAMOTIDINE 20 MG TABLET PO SCH (08:39)
[2021-01-22] MEDS: DOCUSATE SODIUM 100 MG CAPSULE PO SCH ×2 (08:39→20:36)
[2021-01-22] MEDS: INSULIN GLARGINE,HUM.REC.ANLOG 100 UNITS/ML SQ SCH ×2 (08:40→20:35)
[2021-01-22] MEDS: AMINO ACIDS/PROTEIN HYDROLYS 30 ML TUBE NG SCH (08:41)
[2021-01-22] MEDS: AMIODARONE HCL 750 MG in DEXTROSE 5%-WATER 485 ML IV SCH (10:27)
[2021-01-22] MEDS: CEFEPIME HCL 1 GM in DEXTROSE 5%-WATER 50 ML IV SCH (10:52)
[2021-01-22 11:27] LABS: ABG A-A DIFF O2 280.6 mmHg (10-20.0); ABG BASE EXCESS -6.5 mmol/L (-2.0-3.0); ABG CARBOXYHEMOGLOBIN 1.1 % (0.0-1.5); ABG HCO3 18.3 mmol/L (22.0-26.0); ABG METHEMOGLOBIN 0.2 % (0.0-1.5); ABG OXYGEN SATURATION 94.1 % (95.0-98.0); ABG OXYHEMOGLOBIN 92.9 % (94.0-100.0); ABG PCO2 65 mmHg (35-45); ABG TOTAL HEMOGLOBIN 15.3 G/dL (12.0-18.0); PO2, ARTERIAL BG 75.8 mmHg (79.0-87.0); SOURCE, BLOOD GAS ARTERIAL; TEMPERATURE, FAHRENHEIT, BG 98.9 FAHREN (96.0-98.6)
[2021-01-22 12:00] VITALS: BP 145/58
[2021-01-22 12:51] LABS: ABG PH 7.155 (7.35-7.450); SITE, BLOOD GAS ALINE
[2021-01-22 12:52] LABS: O2 DEVICE,BLOOD GAS VENTILATOR (ROOM AIR); VT, ABG 430 ml
[2021-01-22] MEDS ORDERED: SODIUM CHLORIDE 0.9% 2,000 ML ONE ×2 (14:25→16:49)
[2021-01-22 16:00] VITALS: BP 96/41
[2021-01-22] MEDS: NOREPINEPHRINE 4 MG/D5%-WATER 250 ML IV PRN (16:12)
[2021-01-22 17:34] LABS: GLUCOSE,POINT OF CARE 243 MG/DL (70-110)
[2021-01-22 20:00] VITALS: BP 121/51
[2021-01-22] MEDS ORDERED: SODIUM CHLORIDE 0.9% 250 ML IV ONE (22:16)
[2021-01-23] VITALS: BP 122/46
[2021-01-23] MEDS: PROPOFOL 1000 MG/ISO-OSM 100 ML IV PRN ×4 (00:19→16:28)
[2021-01-23] MEDS: INSULIN LISPRO 100 UNITS/ML SQ PRN ×4 (00:20→11:47)
[2021-01-23 02:47] LABS: GLUCOSE,POINT OF CARE 212 MG/DL (70-110)
[2021-01-23 02:47] LABS: GLUCOSE,POINT OF CARE 178 MG/DL (70-110)
[2021-01-23 02:47] LABS: GLUCOSE,POINT OF CARE 191 MG/DL (70-110)
[2021-01-23 04:00] VITALS: BP 121/48
[2021-01-23 06:14] LABS: ALBUMIN 2.2 g/dL (3.4-5.0); BILIRUBIN,TOTAL 0.8 mg/dL (0.1-1.0); CALCIUM, TOTAL 7.4 mg/dL (8.8-10.5); CREATININE 5.12 mg/dL (0.60-1.30); POTASSIUM 5.2 mmol/L (3.5-5.1); TOTAL PROTEIN, SERUM 5.3 g/dL (6.4-8.2)
[2021-01-23 06:29] LABS: GLUCOSE,POINT OF CARE 221 MG/DL (70-110)
[2021-01-23 08:00] VITALS: BP 91/35
[2021-01-23] MEDS: AMINO ACIDS/PROTEIN HYDROLYS 30 ML TUBE NG SCH (08:00)
[2021-01-23] MEDS: DEXAMETHASONE SOD PHOS 4 MG/ML VIAL IVP SCH (09:15)
[2021-01-23] MEDS: DOCUSATE SODIUM 100 MG CAPSULE PO SCH ×2 (09:15→21:17)
[2021-01-23] MEDS: FAMOTIDINE 20 MG TABLET PO SCH (09:15)
[2021-01-23] MEDS: VITAMIN B COMP/VIT C/FOLIC ACID CAPSULE PO SCH (09:15)
[2021-01-23] MEDS: INSULIN GLARGINE,HUM.REC.ANLOG 100 UNITS/ML SQ SCH ×2 (09:18→21:00)
[2021-01-23] MEDS: FentaNYL CIT 1000MCG/0.9% NACL 100 ML IV PRN (09:20)
[2021-01-23] MEDS: CHOLECALCIFEROL (VIT D3) 2,000 UNITS [50 MCG] TABLET PO SCH (09:22)
[2021-01-23] MEDS: AMIODARONE HCL 750 MG in DEXTROSE 5%-WATER 485 ML IV SCH (10:18)
[2021-01-23] MEDS: CEFEPIME HCL 1 GM in DEXTROSE 5%-WATER 50 ML IV SCH (10:39)
[2021-01-23 11:27] LABS: ABG A-A DIFF O2 185.4 mmHg (10-20.0); ABG BASE EXCESS -9.2 mmol/L (-2.0-3.0); ABG CARBOXYHEMOGLOBIN 0.9 % (0.0-1.5); ABG HCO3 16.4 mmol/L (22.0-26.0); ABG METHEMOGLOBIN 0.5 % (0.0-1.5); ABG OXYGEN CONTENT 18.8 mL/dL (15.0-23.0); ABG OXYGEN SATURATION 95.8 % (95.0-98.0); ABG OXYHEMOGLOBIN 94.5 % (94.0-100.0); ABG PH 7.087 (7.35-7.450); ABG TOTAL HEMOGLOBIN 14.1 G/dL (12.0-18.0); PO2, ARTERIAL BG 91.7 mmHg (79.0-87.0); SOURCE, BLOOD GAS ARTERIAL; TEMPERATURE, FAHRENHEIT, BG 99.2 FAHREN (96.0-98.6)
[2021-01-23 11:28] LABS: ABG PCO2 70 mmHg (35-45); O2 DEVICE,BLOOD GAS VENTILATOR (ROOM AIR); PEEP,BG 10 cm H2O; SITE, BLOOD GAS ARTERIAL LINE; VT, ABG 430 ml
[2021-01-23 11:55] LABS: GLUCOSE,POINT OF CARE 211 MG/DL (70-110)
[2021-01-23 12:00] VITALS: BP 96/33
[2021-01-23] MEDS ORDERED: SODIUM BICARBONATE [ADULT] 8.4% 50 MEQ/50 ML SYRINGE IVP ONE (12:00)
[2021-01-23 13:34] LABS: GLUCOSE,POINT OF CARE 195 MG/DL (70-110)
[2021-01-23] MEDS ORDERED: CASPOFUNGIN ACETATE 70 MG in SODIUM CHLORIDE 0.9% 250 ML IV ONE (14:00)
[2021-01-23 14:05] LABS: ABG A-A DIFF O2 220.8 mmHg (10-20.0); ABG CARBOXYHEMOGLOBIN 1.1 % (0.0-1.5); ABG HCO3 20.5 mmol/L (22.0-26.0); ABG METHEMOGLOBIN 0.4 % (0.0-1.5); ABG OXYGEN CONTENT 18.7 mL/dL (15.0-23.0); ABG OXYHEMOGLOBIN 92.6 % (94.0-100.0); ABG PCO2 58 mmHg (35-45); ABG PH 7.226 (7.35-7.450); ABG TOTAL HEMOGLOBIN 14.4 G/dL (12.0-18.0); PO2, ARTERIAL BG 69.6 mmHg (79.0-87.0); SOURCE, BLOOD GAS ARTERIAL; TEMPERATURE, FAHRENHEIT, BG 99.1 FAHREN (96.0-98.6)
[2021-01-23 14:06] LABS: O2 DEVICE,BLOOD GAS VENTILATOR (ROOM AIR); PEEP,BG 10 cm H2O; SITE, BLOOD GAS ARTERIAL LINE; VT, ABG 450 ml
[2021-01-23] MEDS ORDERED: HEPARIN SODIUM,PORCINE 1,000 UNITS/ML VIAL IVP ONE (14:54)
[2021-01-23 16:00] VITALS: BP 122/56
[2021-01-23] MEDS ORDERED: DAPTOMYCIN 375 MG in SODIUM CHLORIDE 0.9% 50 ML IV SCH (16:00)
[2021-01-23 17:37] LABS: GLUCOSE,POINT OF CARE 105 MG/DL (70-110)
[2021-01-23 20:00] VITALS: BP 110/51
[2021-01-23] MEDS ORDERED: SODIUM CHLORIDE 0.9% 250 ML IV ONE (21:01)
[2021-01-23] MEDS ORDERED: SODIUM CHLORIDE 0.9% 500 ML IV ONE (21:01)
[2021-01-23] MEDS: AMIODARONE HCL 200 MG TABLET PO SCH (21:17)
[2021-01-23 21:28] LABS: GLUCOSE,POINT OF CARE 93 MG/DL (70-110)
[2021-01-24] VITALS: BP 131/57
[2021-01-24] MEDS: FentaNYL CIT 1000MCG/0.9% NACL 100 ML IV PRN ×3 (01:08→20:51)
[2021-01-24] MEDS: PROPOFOL 1000 MG/ISO-OSM 100 ML IV PRN ×4 (01:10→20:49)
[2021-01-24 04:00] VITALS: BP 136/57
[2021-01-24 05:02] LABS: BASOPHILS % (AUTO) 1.5 % (0.0-2.0); EOSINOPHILS % (AUTO) 0 % (1.0-6.0); HEMATOCRIT 39.6 % (41-53); HEMOGLOBIN 12.6 g/dL (13.5-17.5); LYMPHOCYTES # (AUTO) 0.2 K/uL (1.0-4.8); MEAN CORPUSCULAR HEMOGLOBIN 28.2 pg (26.0-34.0); MEAN CORPUSCULAR HGB CONC 31.9 G/dL (31.0-37.0); MEAN CORPUSCULAR VOLUME 89 fL (80-100); MONOCYTES # (AUTO) 1.2 K/uL (0.1-1.0); NEUTROPHILS # (AUTO) 17.7 K/uL (1.8-7.7); RED BLOOD CELL COUNT(AUTO) 4.47 MIL/uL (4.50-5.90); RED CELL DISTRIBUTION WIDTH 13.7 % (11.5-14.5)
[2021-01-24 05:02] LABS: GLUCOSE,POINT OF CARE 116 MG/DL (70-110)
[2021-01-24 05:05] LABS: NEUTROPHILS % (AUTO) 91.5 % (40.0-70.0)
[2021-01-24] MEDS: INSULIN LISPRO 100 UNITS/ML SQ PRN ×3 (06:12→17:54)
[2021-01-24 06:52] LABS: PLATELET COUNT (AUTO) 92 K/uL (150-450)
[2021-01-24 08:00] VITALS: BP 150/60
[2021-01-24] MEDS: AMINO ACIDS/PROTEIN HYDROLYS 30 ML TUBE NG SCH (08:14)
[2021-01-24] MEDS: VITAMIN B COMP/VIT C/FOLIC ACID CAPSULE PO SCH (08:15)
[2021-01-24] MEDS: DEXAMETHASONE SOD PHOS 4 MG/ML VIAL IVP SCH (08:15)
[2021-01-24] MEDS: DOCUSATE SODIUM 100 MG CAPSULE PO SCH ×2 (08:15→20:47)
[2021-01-24] MEDS: CHOLECALCIFEROL (VIT D3) 2,000 UNITS [50 MCG] TABLET PO SCH (08:15)
[2021-01-24] MEDS: FAMOTIDINE 20 MG TABLET PO SCH (08:15)
[2021-01-24] MEDS: AMIODARONE HCL 200 MG TABLET PO SCH ×2 (08:16→20:47)
[2021-01-24] MEDS: INSULIN GLARGINE,HUM.REC.ANLOG 100 UNITS/ML SQ SCH ×2 (08:17→20:51)
[2021-01-24 10:05] LABS: ABG A-A DIFF O2 233.8 mmHg (10-20.0); ABG BASE EXCESS -6.8 mmol/L (-2.0-3.0); ABG CARBOXYHEMOGLOBIN 1.3 % (0.0-1.5); ABG HCO3 18.8 mmol/L (22.0-26.0); ABG METHEMOGLOBIN 0.1 % (0.0-1.5); ABG OXYGEN CONTENT 17.8 mL/dL (15.0-23.0); ABG OXYGEN SATURATION 93.5 % (95.0-98.0); ABG OXYHEMOGLOBIN 92.2 % (94.0-100.0); ABG PCO2 48 mmHg (35-45); ABG PH 7.245 (7.35-7.450); ABG TOTAL HEMOGLOBIN 13.7 G/dL (12.0-18.0); PO2, ARTERIAL BG 69.2 mmHg (79.0-87.0); SOURCE, BLOOD GAS ARTERIAL; TEMPERATURE, FAHRENHEIT, BG 97.3 FAHREN (96.0-98.6)
[2021-01-24 10:06] LABS: O2 DEVICE,BLOOD GAS VENTILATOR (ROOM AIR); PEEP,BG 10 cm H2O; SITE, BLOOD GAS ARTERIAL LINE; VT, ABG 450 ml
[2021-01-24] MEDS ORDERED: SODIUM BICARBONATE [ADULT] 8.4% 50 MEQ/50 ML SYRINGE IVP ONE (10:15)
[2021-01-24] MEDS ORDERED: DEXMEDETOMIDINE HCL 400 MCG in SODIUM CHLORIDE 0.9% 96 ML IV PRN (10:15)
[2021-01-24 10:20] LABS: CALCIUM, TOTAL 7.6 mg/dL (8.8-10.5); CREATININE 6.89 mg/dL (0.60-1.30); POTASSIUM 4.9 mmol/L (3.5-5.1)
[2021-01-24] MEDS: CEFEPIME HCL 1 GM in DEXTROSE 5%-WATER 50 ML IV SCH ×2 (11:17→12:08)
[2021-01-24 11:59] LABS: GLUCOSE,POINT OF CARE 130 MG/DL (70-110)
[2021-01-24 12:00] VITALS: BP 157/58
[2021-01-24 13:08] LABS: GLUCOSE,POINT OF CARE 194 MG/DL (70-110)
[2021-01-24] MEDS: NOREPINEPHRINE 4 MG/D5%-WATER 250 ML IV PRN ×2 (13:40→22:44)
[2021-01-24] MEDS ORDERED: CASPOFUNGIN ACETATE 50 MG in SODIUM CHLORIDE 0.9% 250 ML IV SCH (14:00)
[2021-01-24 16:00] VITALS: BP 102/48
[2021-01-24] MEDS ORDERED: HEPARIN SODIUM,PORCINE 1,000 UNITS/ML VIAL IVP ONE (17:20)
[2021-01-24] MEDS ORDERED: MANNITOL 25%-12.5 GM/50 ML VIAL IVP ONE (17:20)
[2021-01-24 19:51] LABS: GLUCOSE,POINT OF CARE 177 MG/DL (70-110)
[2021-01-24 20:00] VITALS: BP 159/59
[2021-01-24] MEDS ORDERED: SODIUM CHLORIDE 0.9% 250 ML IV ONE (20:39)
[2021-01-24] MEDS ORDERED: SODIUM CHLORIDE 0.9% 500 ML IV ONE (20:39)
[2021-01-24 22:39] LABS: GLUCOSE,POINT OF CARE 177 MG/DL (70-110)
[2021-01-24 23:02] LABS: ABG A-A DIFF O2 377.3 mmHg (10-20.0); ABG BASE EXCESS -6.3 mmol/L (-2.0-3.0); ABG CARBOXYHEMOGLOBIN 1.2 % (0.0-1.5); ABG METHEMOGLOBIN 0.3 % (0.0-1.5); ABG OXYGEN CONTENT 16.7 mL/dL (15.0-23.0); ABG OXYGEN SATURATION 92.4 % (95.0-98.0); ABG PCO2 52 mmHg (35-45); PO2, ARTERIAL BG 66.2 mmHg (79.0-87.0); SOURCE, BLOOD GAS ARTERIAL; TEMPERATURE, FAHRENHEIT, BG 98.5 FAHREN (96.0-98.6)
[2021-01-24 23:03] LABS: SITE, BLOOD GAS ARTERIAL LINE
[2021-01-24 23:04] LABS: O2 DEVICE,BLOOD GAS VENTILATOR (ROOM AIR); PEEP,BG 10 cm H2O; VT, ABG 450 ml
[2021-01-25] VITALS: BP 149/51
[2021-01-25] MEDS ORDERED: SODIUM BICARBONATE [ADULT] 8.4% 50 MEQ/50 ML SYRINGE IVP ONE (00:15)
[2021-01-25] MEDS: INSULIN LISPRO 100 UNITS/ML SQ PRN (00:50)
[2021-01-25] MEDS: MIDAZOLAM HCL 100 MG in SODIUM CHLORIDE 0.9% 180 ML IV PRN ×3 (00:52→21:55)
[2021-01-25] MEDS: FentaNYL CIT 1000MCG/0.9% NACL 100 ML IV PRN ×4 (02:08→22:56)
[2021-01-25] MEDS: PROPOFOL 1000 MG/ISO-OSM 100 ML IV PRN ×3 (02:08→15:07)
[2021-01-25] MEDS: CISATRACURIUM BESYLATE IV PRN (02:56)
[2021-01-25] MEDS: SODIUM CHLORIDE 0.9% IV PRN (02:56)
[2021-01-25 03:58] LABS: GLUCOSE,POINT OF CARE 181 MG/DL (70-110)
[2021-01-25 04:00] VITALS: BP 144/57
[2021-01-25 06:08] LABS: D-DIMER 11.43 mg/L FEU (0.00-0.50)
[2021-01-25 06:09] LABS: ALBUMIN 2.1 g/dL (3.4-5.0); BILIRUBIN,TOTAL 0.8 mg/dL (0.1-1.0); C-REACTIVE PROTEIN QUANT 4.69 mg/dL (0.00-0.30); CALCIUM, TOTAL 7.6 mg/dL (8.8-10.5); CREATININE 6.76 mg/dL (0.60-1.30); POTASSIUM 4.3 mmol/L (3.5-5.1); TOTAL PROTEIN, SERUM 5.3 g/dL (6.4-8.2)
[2021-01-25 08:00] VITALS: BP 112/40
[2021-01-25] MEDS: NOREPINEPHRINE 4 MG/D5%-WATER 250 ML IV PRN (08:40)
[2021-01-25] MEDS: ACETAMINOPHEN 325 MG TABLET PO PRN (08:40)
[2021-01-25] MEDS: CHOLECALCIFEROL (VIT D3) 2,000 UNITS [50 MCG] TABLET PO SCH (08:41)
[2021-01-25] MEDS: DEXAMETHASONE SOD PHOS 4 MG/ML VIAL IVP SCH (08:41)
[2021-01-25] MEDS: FAMOTIDINE 20 MG TABLET PO SCH (08:42)
[2021-01-25] MEDS: MICONAZOLE NITRATE 2% 142 GM CREAM [BAZA] TP SCH (08:42)
[2021-01-25] MEDS: AMIODARONE HCL 200 MG TABLET PO SCH ×2 (08:42→20:46)
[2021-01-25] MEDS: VITAMIN B COMP/VIT C/FOLIC ACID CAPSULE PO SCH (08:42)
[2021-01-25] MEDS: AMINO ACIDS/PROTEIN HYDROLYS 30 ML TUBE NG SCH (08:42)
[2021-01-25] MEDS: DOCUSATE SODIUM 100 MG CAPSULE PO SCH ×2 (08:42→20:46)
[2021-01-25] MEDS: INSULIN GLARGINE,HUM.REC.ANLOG 100 UNITS/ML SQ SCH ×2 (08:43→20:48)
[2021-01-25 08:51] LABS: GLUCOSE,POINT OF CARE 98 MG/DL (70-110)
[2021-01-25 10:21] LABS: ABG A-A DIFF O2 567.9 mmHg (10-20.0); ABG BASE EXCESS -5.5 mmol/L (-2.0-3.0); ABG HCO3 19.1 mmol/L (22.0-26.0); ABG METHEMOGLOBIN 0.1 % (0.0-1.5); ABG OXYGEN CONTENT 17.4 mL/dL (15.0-23.0); ABG OXYGEN SATURATION 92.4 % (95.0-98.0); ABG OXYHEMOGLOBIN 91.4 % (94.0-100.0); ABG PCO2 66 mmHg (35-45); ABG TOTAL HEMOGLOBIN 13.5 G/dL (12.0-18.0); PO2, ARTERIAL BG 76.7 mmHg (79.0-87.0); SOURCE, BLOOD GAS ARTERIAL
[2021-01-25 10:22] LABS: ABG PH 7.162 (7.35-7.450); O2 DEVICE,BLOOD GAS VENTILATOR (ROOM AIR); PEEP,BG 10 cm H2O; SITE, BLOOD GAS ARTERIAL LINE; VENT MODE, BG Press. Control Vent (ROOM AIR)
[2021-01-25] MEDS: CEFEPIME HCL 1 GM in DEXTROSE 5%-WATER 50 ML IV SCH ×2 (10:23→19:51)
[2021-01-25 11:46] LABS: EOSINOPHILS % (AUTO) 0 % (1.0-6.0); HEMATOCRIT 38.9 % (41-53); HEMOGLOBIN 12.4 g/dL (13.5-17.5); LYMPHOCYTES # (AUTO) 0.2 K/uL (1.0-4.8); LYMPHOCYTES % (AUTO) 1.3 % (22.0-44.0); MEAN CORPUSCULAR HEMOGLOBIN 28.3 pg (26.0-34.0); MEAN CORPUSCULAR HGB CONC 31.9 G/dL (31.0-37.0); MEAN CORPUSCULAR VOLUME 89 fL (80-100); MONOCYTES # (AUTO) 0.3 K/uL (0.1-1.0); MONOCYTES % (AUTO) 1.5 % (2.0-9.0); NEUTROPHILS # (AUTO) 17.4 K/uL (1.8-7.7); PLATELET COUNT (AUTO) 66 K/uL (150-450); RED BLOOD CELL COUNT(AUTO) 4.38 MIL/uL (4.50-5.90); RED CELL DISTRIBUTION WIDTH 14.6 % (11.5-14.5)
[2021-01-25 11:52] LABS: NEUTROPHILS % (AUTO) 97.2 % (40.0-70.0)
[2021-01-25 12:00] VITALS: BP 111/44
[2021-01-25] MEDS ORDERED: SODIUM CHLORIDE 0.9% 2,000 ML ONE (12:16)
[2021-01-25] MEDS ORDERED: POTASSIUM CHLORIDE 20 MEQ in NXSTAGE RFP-402 K0/CA3 5,000 ML IRRIG PRN (12:30)
[2021-01-25] MEDS ORDERED: FLUCONAZOLE 100 MG/NACL ISOOSM 50 ML IV SCH (14:00)
[2021-01-25] MEDS: NOREPINEPHRINE BITARTRATE 16 MG in DEXTROSE 5%-WATER 234 ML IV PRN (15:08)
[2021-01-25 16:00] VITALS: BP 112/44
[2021-01-25 17:16] LABS: ABG BASE EXCESS -8.6 mmol/L (-2.0-3.0); ABG CARBOXYHEMOGLOBIN 1.1 % (0.0-1.5); ABG HCO3 17.6 mmol/L (22.0-26.0); ABG METHEMOGLOBIN 0.3 % (0.0-1.5); ABG OXYGEN CONTENT 16.3 mL/dL (15.0-23.0); ABG OXYHEMOGLOBIN 87.8 % (94.0-100.0); ABG PCO2 44 mmHg (35-45); ABG PH 7.244 (7.35-7.450); ABG TOTAL HEMOGLOBIN 13.2 G/dL (12.0-18.0); INSPIRATORY TIME, BG 0.8 SEC; O2 DEVICE,BLOOD GAS VENTILATOR (ROOM AIR); PEEP,BG 10 cm H2O; PO2, ARTERIAL BG 58.3 mmHg (79.0-87.0); SITE, BLOOD GAS ARTERIAL LINE; SOURCE, BLOOD GAS ARTERIAL; TEMPERATURE, FAHRENHEIT, BG 97.3 FAHREN (96.0-98.6); VENT MODE, BG Press. Control Vent (ROOM AIR)
[2021-01-25 19:02] LABS: CALCIUM, TOTAL 7.2 mg/dL (8.8-10.5); CREATININE 5.84 mg/dL (0.60-1.30); MAGNESIUM 2.3 mg/dL (1.80-2.40); POTASSIUM 5.5 mmol/L (3.5-5.1)
[2021-01-25 19:18] LABS: GLUCOSE,POINT OF CARE 58 MG/DL (70-110)
[2021-01-25 19:18] LABS: GLUCOSE,POINT OF CARE 138 MG/DL (70-110)
[2021-01-25 19:18] LABS: GLUCOSE,POINT OF CARE 124 MG/DL (70-110)
[2021-01-25 20:00] VITALS: BP 120/47
[2021-01-25] MEDS ORDERED: CALCIUM GLUCONATE 100 MG/ML 10 ML IVP ONE ×3 (21:30→23:30)
[2021-01-25 22:53] LABS: GLUCOSE,POINT OF CARE 123 MG/DL (70-110)
[2021-01-25] MEDS: POTASSIUM CHLORIDE 15 MEQ in NXSTAGE RFP-402 K0/CA3 5,000 ML IRRIG PRN (22:53)
[2021-01-26] VITALS: BP 108/50
[2021-01-26 00:43] LABS: OCCULT BLOOD,GASTRIC FLUID NEGATIVE (NEGATIVE)
[2021-01-26] MEDS: PROPOFOL 1000 MG/ISO-OSM 100 ML IV PRN ×4 (02:24→18:50)
[2021-01-26] MEDS: NOREPINEPHRINE BITARTRATE 16 MG in DEXTROSE 5%-WATER 234 ML IV PRN (03:23)
[2021-01-26] MEDS: CEFEPIME HCL 1 GM in DEXTROSE 5%-WATER 50 ML IV SCH ×2 (03:24→11:18)
[2021-01-26] MEDS: CISATRACURIUM BESYLATE IV PRN (03:24)
[2021-01-26] MEDS: SODIUM CHLORIDE 0.9% IV PRN (03:24)
[2021-01-26 04:00] VITALS: BP 102/51
[2021-01-26 05:04] LABS: ALBUMIN 1.7 g/dL (3.4-5.0); BILIRUBIN,TOTAL 1.2 mg/dL (0.1-1.0); CALCIUM, TOTAL 8.3 mg/dL (8.8-10.5); CREATININE 4.52 mg/dL (0.60-1.30); MAGNESIUM 1.1 mg/dL (1.80-2.40); PHOSPHORUS 5.6 mg/dL (2.5-4.9); POTASSIUM 4.8 mmol/L (3.5-5.1); TOTAL PROTEIN, SERUM 5.1 g/dL (6.4-8.2)
[2021-01-26] MEDS: FentaNYL CIT 1000MCG/0.9% NACL 100 ML IV PRN ×3 (05:14→18:49)
[2021-01-26] MEDS: INSULIN LISPRO 100 UNITS/ML SQ PRN ×2 (06:05→11:55)
[2021-01-26] MEDS: POTASSIUM CHLORIDE 15 MEQ in NXSTAGE RFP-402 K0/CA3 5,000 ML IRRIG PRN ×2 (06:55→15:54)
[2021-01-26 07:51] LABS: GLUCOSE,POINT OF CARE 157 MG/DL (70-110)
[2021-01-26 07:51] LABS: GLUCOSE,POINT OF CARE 126 MG/DL (70-110)
[2021-01-26 08:00] VITALS: BP 117/51
[2021-01-26] MEDS: DEXAMETHASONE SOD PHOS 4 MG/ML VIAL IVP SCH (08:03)
[2021-01-26] MEDS: AMIODARONE HCL 200 MG TABLET PO SCH (08:03)
[2021-01-26] MEDS: FAMOTIDINE 20 MG TABLET PO SCH (08:03)
[2021-01-26] MEDS: VITAMIN B COMP/VIT C/FOLIC ACID CAPSULE PO SCH (08:03)
[2021-01-26] MEDS: CHOLECALCIFEROL (VIT D3) 2,000 UNITS [50 MCG] TABLET PO SCH (08:04)
[2021-01-26] MEDS: DOCUSATE SODIUM 100 MG CAPSULE PO SCH (08:04)
[2021-01-26] MEDS: AMINO ACIDS/PROTEIN HYDROLYS 30 ML TUBE NG SCH (08:05)
[2021-01-26] MEDS: MICONAZOLE NITRATE 2% 142 GM CREAM [BAZA] TP SCH (08:07)
[2021-01-26] MEDS: INSULIN GLARGINE,HUM.REC.ANLOG 100 UNITS/ML SQ SCH (08:07)
[2021-01-26] MEDS ORDERED: AMIODARONE HCL 360 MG in DEXTROSE 5%-WATER 242.8 ML IV ONE (10:15)
[2021-01-26] MEDS ORDERED: DIGOXIN 250 MCG/ML 2 ML AMP IVP ONE (10:15)
[2021-01-26 12:00] VITALS: BP 118/55
[2021-01-26 12:28] LABS: ABG A-A DIFF O2 422.2 mmHg (10-20.0); ABG BASE EXCESS -5.4 mmol/L (-2.0-3.0); ABG CARBOXYHEMOGLOBIN 1.1 % (0.0-1.5); ABG METHEMOGLOBIN 0.3 % (0.0-1.5); ABG OXYGEN CONTENT 15.3 mL/dL (15.0-23.0); ABG OXYGEN SATURATION 91.9 % (95.0-98.0); ABG OXYHEMOGLOBIN 90.6 % (94.0-100.0); ABG PCO2 43 mmHg (35-45); ABG PH 7.301 (7.35-7.450); O2 DEVICE,BLOOD GAS VENTILATOR (ROOM AIR); PO2, ARTERIAL BG 66.6 mmHg (79.0-87.0); SITE, BLOOD GAS ARTERIAL LINE; SOURCE, BLOOD GAS ARTERIAL; TEMPERATURE, FAHRENHEIT, BG 98.4 FAHREN (96.0-98.6); VT, ABG 36 ml
[2021-01-26 12:29] LABS: PEEP,BG 10 cm H2O
[2021-01-26] MEDS ORDERED: CEFEPIME HCL 0.5 GM in DEXTROSE 5%-WATER 50 ML IV SCH (13:00)
[2021-01-26] MEDS: MIDAZOLAM HCL 100 MG in SODIUM CHLORIDE 0.9% 180 ML IV PRN (13:49)
[2021-01-26] MEDS ORDERED: CASPOFUNGIN ACETATE 50 MG in SODIUM CHLORIDE 0.9% 250 ML IV SCH (14:00)
[2021-01-26] MEDS ORDERED: MAGNESIUM SULFATE 3 GM in DEXTROSE 5%-WATER 100 ML IV ONE (15:00)
[2021-01-26 16:00] VITALS: BP 116/53
[2021-01-26] MEDS ORDERED: AMIODARONE HCL 540 MG in DEXTROSE 5%-WATER 239.2 ML IV ONE (16:15)
[2021-01-26 18:23] LABS: CALCIUM, TOTAL 8.2 mg/dL (8.8-10.5); CREATININE 3.73 mg/dL (0.60-1.30); POTASSIUM 5.4 mmol/L (3.5-5.1)
[2021-01-26 18:34] LABS: GLUCOSE,POINT OF CARE 194 MG/DL (70-110)
[2021-01-26] MEDS ORDERED: SODIUM CHLORIDE 0.9% 500 ML IV ONE (19:59)
[2021-01-26] MEDS ORDERED: SODIUM CHLORIDE 0.9% 250 ML IV ONE (19:59)
[2021-01-26 20:00] VITALS: BP 129/57
[2021-01-26 20:10] LABS: GLUCOSE,POINT OF CARE 214 MG/DL (70-110)
[2021-01-26] MEDS ORDERED: HEPARIN SODIUM,PORCINE 1,000 UNITS/ML VIAL IVP ONE ×2 (20:30)
[2021-01-27] MEDS ORDERED: AMIODARONE HCL 750 MG in DEXTROSE 5%-WATER 485 ML IV SCH (10:15)
== END 2021-01-26 21:00 | disposition short-term general hospital (02) | DRG 870 ==
LOC: EMS 16:29 → 5N 19:01 → ICU 01-16 17:35
PROVIDERS: ADMIT Internal Medicine; ATTEND Internal Medicine
PROC: XW033E5 Introduction of Remdesivir Anti-infective into Peripheral Vein, Percutaneous Approach, New Technology Group 5 (ICD-10-PCS; principal; 2021-01-15)
PROC: XW033H5 Introduction of Tocilizumab into Peripheral Vein, Percutaneous Approach, New Technology Group 5 (ICD-10-PCS; 2021-01-16)
PROC: 5A09357 Assistance with Respiratory Ventilation, Less than 24 Consecutive Hours, Continuous Positive Airway Pressure (ICD-10-PCS; 2021-01-16)
PROC: 5A09357 Assistance with Respiratory Ventilation, Less than 24 Consecutive Hours, Continuous Positive Airway Pressure (ICD-10-PCS; 2021-01-17)
PROC: 5A09357 Assistance with Respiratory Ventilation, Less than 24 Consecutive Hours, Continuous Positive Airway Pressure (ICD-10-PCS; 2021-01-18)
PROC: 5A1955Z Respiratory Ventilation, Greater than 96 Consecutive Hours (ICD-10-PCS; 2021-01-19)
PROC: 0BH17EZ Insertion of Endotracheal Airway into Trachea, Via Natural or Artificial Opening (ICD-10-PCS; 2021-01-19)
PROC: 06HY33Z Insertion of Infusion Device into Lower Vein, Percutaneous Approach (ICD-10-PCS; 2021-01-20)
DX: A41.9 Sepsis, unspecified organism (principal); U07.1 COVID-19; J12.82 Pneumonia due to coronavirus disease 2019; N17.0 Acute kidney failure with tubular necrosis; J80 Acute respiratory distress syndrome; R57.9 Shock, unspecified; E87.4 Mixed disorder of acid-base balance; D68.69 Other thrombophilia; Z99.11 Dependence on respirator [ventilator] status; E83.42 Hypomagnesemia; R34 Anuria and oliguria; I10 Essential (primary) hypertension; D72.810 Lymphocytopenia; E11.9 Type 2 diabetes mellitus without complications; I48.0 Paroxysmal atrial fibrillation; G83.9 Paralytic syndrome, unspecified; Z83.3 Family history of diabetes mellitus; Z99.2 Dependence on renal dialysis
CPT/HCPCS: 36600; 71045; 76770; 80048; 80053; 81001; 81002; 82271; 82550; 82570; 82728; 82805; 82962; 83605; 83615; 83735; 83880; 84100; 84145; 84156; 84300; 84484; 84540; 85025; 85379; 85384; 85610; 85730; 86140; 87040; 87070; 87077; 87081; 87086; 87324; 87340; 87449; 87804; 93005; 94002; 94003; 94640; 94660; 99291; A9575; G0238; G0378; J0131; J0282; J0360; J0610; J0637; J0692; J0696; J0878; J1100; J1160; J1450; J1642; J1644; J1815; J2150; J2250; J2704; J3475; J3480; J3490; J3535; J7030; J7040; J7050; J7060; J7120; 36415-L1; 36415-TC; U0003